=== PATIENT | female | born 1930 | race Caucasian/White ===

== ENCOUNTER 2017-01-20 05:31 | Day surgery (SDC) | payer MEDICARE, OTHER ==
[~2017-01-20 05:31] MED LIST: AMBIEN10 M1 PO; ASPIR 8181 M1 PO; BACTRIM DS TAB1 EAC1 PO; FIBER CHOICE C1.5 G1 PO; FISH OIL 1,2001 CAP PO; FISH OIL 1,2001 EAC8 PO; FOLIC ACID1 MG PO; GLUCOPHAGE XR500 M1 PO; LEVOTHYROXINE100 MCG PO; PRAVASTATIN SOD40 MG PO; PRESERVISION A1 EAC5 PO; SYNTHROID100 MC1 PO; SYNTHROID50 MC1 PO; ZOLPIDEM TARTRA10 M1 PO
[2017-01-20 06:35] LABS: BASO % 1.7 % (0-2); BASO ABSOLUTE COUNT 0.1 tho/cmm (0.0-0.2); EOS % 9.5 % (0-7); EOSINOPHIL ABSOLUTE COUNT 0.4 tho/cmm (0.0-0.7); HCT-HEMATOCRIT 37.1 % (34.0-49.0); HGB-HEMOGLOBIN 12.6 gm/dl (12.0-15.5); IMMATURE GRANULOCYTES ABSOLUTE 0.01 tho/cmm (0-0.03); IMMATURE GRANULOCYTES PERCENT 0.2 % (0-0.3); LYMPH % 45.6 % (20-45); LYMPH ABSOLUTE COUNT 1.9 tho/cmm (0.8-4.5); MCV (MEAN CELL VOLUME) 91.2 fl (82.0-96.0); MEAN PLATELET VOLUME 9.9 cmc (9.4-12.4); MONO % 12.9 % (0-12); MONOCYTE ABSOLUTE COUNT 0.5 tho/cmm (0.0-1.2); NEUTROPHIL ABSOLUTE COUNT 1.3 tho/cmm (1.6-8.0); NEUTROPHIL-AUTOMATED 1.3 tho/cmm (1.6-8.0); NEUTROPHILS % 30.1 % (40-80); PLATELET COUNT 189 tho/cmm (150-450); RED BLOOD COUNT 4.07 mil/cmm (4.00-5.20); WHITE BLOOD COUNT 4.2 tho/cmm (4.0-10.0)
[2017-01-20 06:50] LABS: ANION GAP 13 mmol/L (0-20); BLOOD UREA NITROGEN 17 mg/dl (6-24); CALCIUM 8.7 mg/dl (8.5-10.5); CARBON DIOXIDE-VENOUS 26 mmol/L (22-32); CHLORIDE 108 mmol/l (96-110); CREATININE 0.64 mg/dl (0.50-1.10); GLUCOSE 116 mg/dL (70-110); POTASSIUM 3.6 mmol/L (3.7-5.1); SODIUM 143 mmol/L (135-145); eGFR VALUE FOR BLACK >90 mL/Min
--- NOTE | 2017-01-20 21:07 | NUR ---
VIRTUAL CARE NOTE: ASSESSMENT DEFERRED. ATTEMPTED TO ROUND X3. PT EITHER WITH STAFF OR SLEEPING. WILL CONTINUE WITH CHART REVIEW.
--- NOTE | 2017-01-21 13:50 | NUR ---
virtual care note: checked in with pt at this time. she has family in the room. she is able to communicate with VN appropriately. alert, oriented. sitting up in her chair. states she feels ok today, but still not "the best" Pt states she has been up for a walk and that she is taking liquids without much difficulty. she states she lives at home independently. states that she feels she will be able to manage her care at home with the help of her family who are available to check in on her as needed. will not discharge today as originally planned due to the weakness she has experienced since surgery. will check back with her in the [facility]. electronic chart reivewed.
[2017-01-22] MEDS ORDERED: NORCO 5-325 TA1 EACH PO (07:55)
--- NOTE | 2017-01-22 20:09 | NUR ---
VN/LEADER ISMAEL-VISITED WITH PATIENT SHE LAY IN BED. STATES PAIN IS BETTER NOW BUT STILL HAVING SOME TROUBLE IT HURTS WHEN SHE MOVES AND TAKES DEEP BREATHS. EXPLAINED THE IMPORTANCE OF STILL NEEDING TO WALKING IN THE HALLS AND DEEP BREATHS AND COUGHING. SHE HAD NO FURTHER CONCERNS OR QUESTIONS. WE DID DISCUSS HER GETTING TO GO HOME TOMORROW
[2017-01-23] MEDS ORDERED: CLEOCIN HCL150 M1 PO (13:58)
--- NOTE | 2017-01-23 14:33 | NUR ---
VIRTUAL CARE NOTE: PT RESTING ON BED, BRENDA AT BEDSIDE READY FOR DISCHARGE INSTRUCTIONS. INFORMATION GIVEN TO SON, QUESTIONS ALL ASWERED. INSTRUCTIONS TO KEEP TRACK OF TEMP AT HOME PT PT CON'T TO HAVE LOW GRADE FEVER. TROY BAUTISTA ALSO NOTIFIED OF TEMP 100.0.PT WILL BE DC'D WITH [facility]AMY[facility]. INFORMED FLOOR NURSE DISCHARGE TEACHING DONE.
[2017-01-23 16:09] LABS: URINE BILIRUBIN NEGATIVE (NEG); URINE BLOOD SMALL (NEG); URINE GLUCOSE (UA) NEGATIVE (NEG); URINE KETONE NEGATIVE (NEG); URINE LEUKOCYTE ESTERASE NEGATIVE (NEG); URINE NITRITE NEGATIVE (NEG); URINE PROTEIN NEGATIVE (NEG); URINE SPECIFIC GRAVITY 1.005 (1.003-1.030)
[2017-01-23 16:12] LABS: URINE APPEARANCE CLEAR; URINE COLOR YELLOW
[2017-01-23 16:19] LABS: HCT-HEMATOCRIT 36.5 % (34.0-49.0); HGB-HEMOGLOBIN 12.4 gm/dl (12.0-15.5); MCH (MEAN CORPUSCULAR HGB) 31.2 pg (28.0-32.0); MCV (MEAN CELL VOLUME) 91.9 fl (82.0-96.0); MEAN PLATELET VOLUME 11.8 cmc (9.4-12.4); NEUTROPHIL-AUTOMATED 3.7 tho/cmm (1.6-8.0); PLATELET COUNT 218 tho/cmm (150-450); RED BLOOD COUNT 3.97 mil/cmm (4.00-5.20); RED CELL DISTRIBUTION WIDTH 12.9 % (12.4-16.4); WHITE BLOOD COUNT 5.9 tho/cmm (4.0-10.0)
[2017-01-23 16:20] LABS: URINE RBC 0-2 /[HPF] (0-5); URINE WBC 0-2 /[HPF] (0-5)
[2017-01-23 16:20] LABS: BASO % 0.5 % (0-2); EOS % 5.1 % (0-7); EOSINOPHIL ABSOLUTE COUNT 0.3 tho/cmm (0.0-0.7); IMMATURE GRANULOCYTES ABSOLUTE 0.02 tho/cmm (0-0.03); IMMATURE GRANULOCYTES PERCENT 0.3 % (0-0.3); LYMPH % 19.9 % (20-45); LYMPH ABSOLUTE COUNT 1.2 tho/cmm (0.8-4.5); MONO % 12.5 % (0-12); MONOCYTE ABSOLUTE COUNT 0.7 tho/cmm (0.0-1.2); NEUTROPHIL ABSOLUTE COUNT 3.7 tho/cmm (1.6-8.0); NEUTROPHILS % 61.7 % (40-80)
--- NOTE | 2017-01-23 20:35 | NUR ---
LUIS ARMANDO GUEVARA-VISITED WITH PATIENT-GRANDCHILDREN AT BEDSIDE VISITING. PATIENT IS DOING OK AND PAIN IS CONTROLLED EXCEPT WHEN SHE IS MOVING OR GETTING UP. ENC HER TO STILL GET UP AND WALK WITH ASSISTANCE WHEN ASKED TO AND TO DEEP BREATHE AND COUGH. EDUCATED ON IMPORTANCE FOR STRENGTH AND REDUCTION OF FEVER. PATIENT HAD NO OTHER QUESTIONS OR CONCERNS AT THIS TIME CHART REVIEWED
[2017-02-17] MEDS ORDERED: FISH OIL 11000 MG/CA PO (07:32)
[2017-02-17] MEDS ORDERED: FIBERCON625 M2 PO (07:32)
[2017-02-17] MEDS ORDERED: HYDROCODON-ACE1 EA16 PO (07:33)
[2017-02-17] MEDS ORDERED: SYNTHROID100 MC1 PO (07:34)
[2017-02-17] MEDS ORDERED: MELATONIN3 M4 PO (07:35)
[2017-02-17] MEDS ORDERED: MULTIVITAMINS1 EAC6 PO (07:35)
[2017-02-17] MEDS ORDERED: PRESERVISION A1 EAC3 PO (07:36)
[2017-02-17] MEDS ORDERED: FOLIC ACID1 M1 PO (07:37)
[2017-02-17] MEDS ORDERED: AMBIEN5 M1 PO (07:37)
[2017-02-17] MEDS ORDERED: LASIX20 M1 PO (07:38)
[2017-02-17] MEDS ORDERED: POTASSIUM CHLO10 ME1 PO (07:39)
== END 2017-01-24 15:15 | disposition swing bed (61) ==
LOC: SRG 05:31 → SHSB 05:32 → ORW 07:35 → PACU 09:22 → 5WD 11:10
PROVIDERS: Anesthesiology; Surgery
PROC: 0YU50JZ Supplement Right Inguinal Region with Synthetic Substitute, Open Approach (ICD-10-PCS; principal; 2017-01-20)
DX: K40.90 Unilateral inguinal hernia, without obstruction or gangrene, not specified as recurrent (principal); M19.90 Unspecified osteoarthritis, unspecified site; E11.9 Type 2 diabetes mellitus without complications; E03.9 Hypothyroidism, unspecified; F41.9 Anxiety disorder, unspecified; F32.9 Major depressive disorder, single episode, unspecified; Z79.82 Long term (current) use of aspirin; Z79.84 Long term (current) use of oral hypoglycemic drugs; Z79.899 Other long term (current) drug therapy; Z88.0 Allergy status to penicillin; Z88.5 Allergy status to narcotic agent; Z88.6 Allergy status to analgesic agent; Z88.8 Allergy status to other drugs, medicaments and biological substances; Z85.828 Personal history of other malignant neoplasm of skin; Z90.49 Acquired absence of other specified parts of digestive tract; Z98.41 Cataract extraction status, right eye; Z98.42 Cataract extraction status, left eye; Z96.0 Presence of urogenital implants; Z98.890 Other specified postprocedural states
CPT/HCPCS: C1781; G8978-GP-CJ; G8979-GP-CI; G8980-GP-CJ; G8987-GO-CJ; G8988-GO-CI; G8989-GO-CJ; J0131; J1100; J1885; J2405; J2550

== ENCOUNTER 2017-02-17 08:42 | Inpatient (IN) | payer MEDICARE, OTHER ==
[~2017-02-17 08:42] MED LIST changes: +AMBIEN5 M1 PO; +CLEOCIN HCL150 M1 PO; +FIBERCON625 M2 PO; +FISH OIL 11000 MG/CA PO; +FOLIC ACID1 M1 PO; +HYDROCODON-ACE1 EA16 PO; +LASIX20 M1 PO; +MELATONIN3 M4 PO; +MULTIVITAMINS1 EAC6 PO; +NORCO 5-325 TA1 EACH PO; +POTASSIUM CHLO10 ME1 PO; +PRESERVISION A1 EAC3 PO
[2017-02-17] MEDS ORDERED: GLUCOPHAGE500 M3 PO (09:01)
[2017-02-17 09:25] LABS: BASO % 0.7 % (0-2); EOS % 9.1 % (0-7); EOSINOPHIL ABSOLUTE COUNT 0.5 tho/cmm (0.0-0.7); HCT-HEMATOCRIT 41.2 % (34.0-49.0); HGB-HEMOGLOBIN 13.5 gm/dl (12.0-15.5); IMMATURE GRANULOCYTES ABSOLUTE 0.01 tho/cmm (0-0.03); IMMATURE GRANULOCYTES PERCENT 0.2 % (0-0.3); LYMPH % 48.2 % (20-45); LYMPH ABSOLUTE COUNT 2.6 tho/cmm (0.8-4.5); MCH (MEAN CORPUSCULAR HGB) 30.7 pg (28.0-32.0); MCHC MEAN CORPUSCULAR HGB CONC 32.8 % (32.0-36.0); MCV (MEAN CELL VOLUME) 93.6 fl (82.0-96.0); MEAN PLATELET VOLUME 9.8 cmc (9.4-12.4); MONO % 11.1 % (0-12); MONOCYTE ABSOLUTE COUNT 0.6 tho/cmm (0.0-1.2); NEUTROPHIL ABSOLUTE COUNT 1.7 tho/cmm (1.6-8.0); NEUTROPHIL-AUTOMATED 1.7 tho/cmm (1.6-8.0); NEUTROPHILS % 30.7 % (40-80); PLATELET COUNT 199 tho/cmm (150-450); RED CELL DISTRIBUTION WIDTH 13.4 % (12.4-16.4); WHITE BLOOD COUNT 5.4 tho/cmm (4.0-10.0)
[2017-02-17] MEDS ORDERED: PRINIVIL5 M1 PO (09:29)
[2017-02-17 09:34] LABS: ANION GAP 12 mmol/L (0-20); BLOOD UREA NITROGEN 22 mg/dl (6-24); CALCIUM 9.1 mg/dl (8.5-10.5); CARBON DIOXIDE-VENOUS 29 mmol/L (22-32); CHLORIDE 104 mmol/l (96-110); CREATININE 0.81 mg/dl (0.50-1.10); GLUCOSE 108 mg/dL (70-110); POTASSIUM 3.9 mmol/L (3.7-5.1); SODIUM 141 mmol/L (135-145); eGFR VALUE FOR BLACK 75 mL/Min
[2017-02-18 05:04] LABS: BASO % 0.2 % (0-2); EOS % 0.2 % (0-7); HCT-HEMATOCRIT 32.3 % (34.0-49.0); HGB-HEMOGLOBIN 10.6 gm/dl (12.0-15.5); IMMATURE GRANULOCYTES ABSOLUTE 0.02 tho/cmm (0-0.03); IMMATURE GRANULOCYTES PERCENT 0.3 % (0-0.3); LYMPH % 22.5 % (20-45); LYMPH ABSOLUTE COUNT 1.4 tho/cmm (0.8-4.5); MCH (MEAN CORPUSCULAR HGB) 30.1 pg (28.0-32.0); MCHC MEAN CORPUSCULAR HGB CONC 32.8 % (32.0-36.0); MCV (MEAN CELL VOLUME) 91.8 fl (82.0-96.0); MEAN PLATELET VOLUME 9.9 cmc (9.4-12.4); MONO % 11.4 % (0-12); MONOCYTE ABSOLUTE COUNT 0.7 tho/cmm (0.0-1.2); NEUTROPHIL ABSOLUTE COUNT 4.1 tho/cmm (1.6-8.0); NEUTROPHIL-AUTOMATED 4.1 tho/cmm (1.6-8.0); NEUTROPHILS % 65.4 % (40-80); PLATELET COUNT 152 tho/cmm (150-450); RED BLOOD COUNT 3.52 mil/cmm (4.00-5.20); RED CELL DISTRIBUTION WIDTH 13.4 % (12.4-16.4); WHITE BLOOD COUNT 6.2 tho/cmm (4.0-10.0)
--- NOTE | 2017-02-18 16:40 | NUR ---
virtual care note: checked in on pt. she's sitting up in her chair. state that her throat is sore, but she had a bit of a banana and some cool water and hopes that will help. she states she does not have any current needs or questions. encouraged her to call for assistance if she needs it. her call light is on her lap, she shows me that she knows how to use it. will continue to monitor. electronic chart reviewed.
--- NOTE | 2017-02-19 12:17 | NUR ---
VIRTUAL CARE NOTE: CHECKED IN ON PT AT THIS TIME. SITTING UP IN HER CHAIR. NO NEEDS, BUT STILL HAS VERY VAGUE COMPLAINTS. ENCOURAGED HER TO AMBULATE WITH STAFF. NO FAMILY PRESENT AT THIS TIME. FOLLOWS ALONG WITH COVERSATION APPROPRIATELY. WILL CONTINUE TO MONITOR. ELECTRONIC CHART REVIEWED.
[2017-02-21] MEDS ORDERED: NORCO 5-325 TA1 EACH PO (10:48)
== END 2017-02-21 13:55 | DRG 352 ==
LOC: SHSA 08:42 → ORW 10:40 → PACU 12:44 → 5WD 14:05
PROVIDERS: ADMIT Surgery
PROC: 0YU50JZ Supplement Right Inguinal Region with Synthetic Substitute, Open Approach (ICD-10-PCS; principal; 2017-02-17)
DX: K40.91 Unilateral inguinal hernia, without obstruction or gangrene, recurrent (principal); E11.9 Type 2 diabetes mellitus without complications; F32.9 Major depressive disorder, single episode, unspecified; K21.9 Gastro-esophageal reflux disease without esophagitis; F41.9 Anxiety disorder, unspecified; E03.9 Hypothyroidism, unspecified; Z88.5 Allergy status to narcotic agent; Z88.0 Allergy status to penicillin; Z88.8 Allergy status to other drugs, medicaments and biological substances; Z79.82 Long term (current) use of aspirin; Z79.84 Long term (current) use of oral hypoglycemic drugs; Z79.899 Other long term (current) drug therapy
CPT/HCPCS: C1781; J0131; J1200; J1956; J2250; J2405; J3010; J7030